=== PATIENT | female | born 1960 | race Caucasian/White ===

== ENCOUNTER → 2017-09-12 | Outpatient (CLI) | payer OTHER ==
[~2017-09-12] MED LIST: CELEXA10 MG PO; CHLOR-PHEN12 MG PO; INDERAL 10MG10 MG PO; LOPID 600M600 MG/TAB; LOPID 600M600 MG/TAB PO; PREMPRO 0.3 MG-1 TAB PO; SEROQUEL50 MG PO; ULTRAM 50MG TAB50 MG PO
== END ==
LOC: MC.RAD 14:56
DX: Z12.31 Encounter for screening mammogram for malignant neoplasm of breast (principal)

== ENCOUNTER → 2018-10-29 | Outpatient (CLI) | payer OTHER | LOC: MC.RAD 12:52 | DX: Z12.31 Encounter for screening mammogram for malignant neoplasm of breast (principal) ==

== ENCOUNTER → 2020-01-13 | Outpatient (CLI) | payer BC | LOC: MC.RAD 12-09 11:45 | DX: Z12.31 Encounter for screening mammogram for malignant neoplasm of breast (principal) ==

== ENCOUNTER → 2021-02-13 | Outpatient (CLI) | payer BC | LOC: MC.RAD 01-18 14:45 | DX: Z12.31 Encounter for screening mammogram for malignant neoplasm of breast (principal) ==

== ENCOUNTER 2023-11-14 07:29 | Day surgery (SDC) | payer BC ==
[~2023-11-14] VITALS: Ht 160 cm; Wt 71.5 kg
[2023-11-14] MEDS ORDERED: LIVALO1 MG PO (08:10)
[2023-11-14] MEDS ORDERED: TOPROL XL 50MG50 MG PO (08:12)
[2023-11-14] MEDS ORDERED: INDERAL 10MG10 MG PO (08:12)
[2023-11-14] MEDS ORDERED: ULTRAM 50MG TAB50 MG PO (08:13)
[2023-11-14] MEDS ORDERED: FLONASEALLERGY NS (08:15)
[2023-11-14] MEDS ORDERED: HUMIRA40 MG/0.8 SQ (08:15)
[2023-11-14] MEDS ORDERED: FLEXERIL 1010 MG/TAB PO (08:16)
[2023-11-14 08:26] VITALS: BP 159/93; PULSE 66; TEMP 97.5
[2023-11-14 09:40] VITALS: BP 117/84; PULSE 68; TEMP 97.6
[2023-11-14 09:55] VITALS: BP 131/82; PULSE 66
[2023-11-14 10:05] VITALS: BP 126/83; PULSE 64
--- NOTE | 2023-11-14 10:05 | NUR ---
0940 RETURNS TO ROOM 5 PER CART. AWAKE, ALERT. RESP UNLABORED. AMBULATES TO RECLINER WITH STANDBY ASSIST. DENIES NAUSEA OR ABD PAIN. VITAL SIGNS OBTAINED. CALL LIGHT AT SIDE. HERE 0954 TOLERATES PO JUICE AND MUFFIN WITHOUT NAUSEA. DISCHARGE INSTRUCTIONS REVIEWED. PATIENT VERBALIZES UNDERSTANDING. COPY PROVIDED IN DISCHARGE FOLDER. 1000 DR[address] YUN HERE TO VISIT WITH PATIENT 1003 DRESSES SELF
== END 2023-11-14 10:09 | disposition home or self-care (01) ==
LOC: SDCO 07:29
DX: Z12.11 Encounter for screening for malignant neoplasm of colon (principal)
CPT/HCPCS: J2704; J7120